=== PATIENT | female | born 1995 | race Caucasian/White ===

== ENCOUNTER 2016-10-29 20:49 | Emergency (ER) | payer SELFPAY ==
[2016-10-29 21:40] LABS: Hematocrit 41 % (35-47); Hemoglobin 13.4 g/dl (12.0-16.0); Mean Corpuscular HGB Conc 33 g/dl (31-36); Mean Corpuscular Hemoglobin 29 pg (27-31); Mean Corpuscular Volume 87 fL (80-97); Mean Platelet Volume 9 um3 (7.4-10.4); Red Blood Count 4.66 10^6/ul (4.0-5.4); Red Cell Distribution Width 15 % (10.5-15); White Blood Count 6.4 10^3/ul (3.5-10.8)
[2016-10-29 21:45] LABS: Urine Bilirubin Negative (Negative); Urine Glucose Negative (Negative); Urine Nitrite Negative (Negative)
[2016-10-29 21:52] LABS: ALT 14 U/L (7-52); AST 19 U/L (13-39); Albumin 4.2 g/dL (3.2-5.2); Alkaline Phosphatase 43 U/L (34-104); Anion Gap 10 mmol/L (2-11); BUN/Creatinine Ratio 25.6 (8-20); Blood Urea Nitrogen 20 mg/dL (6-24); CO2 Carbon Dioxide 24 mmol/L (22-32); Calcium 9.6 mg/dL (8.6-10.3); Chloride 102 mmol/L (101-111); EGFR African American 119.9 (>60); EGFR Non-African American 93.2 (>60); Globulin 2.9 g/dL (2-4); Glucose 83 mg/dL (70-100); Potassium 3.8 mmol/L (3.5-5.0); Sodium 136 mmol/L (133-145); Total Protein 7.1 g/dL (6.4-8.9)
[2016-10-29 21:59] LABS: Benzodiazepine Urine Screen None Detected (None Detect)
[2016-10-29 22:03] LABS: Acetaminophen < 15 mcg/mL; Alcohol < 10 mg/dL (<10); Salicylate < 2.50 mg/dL (<30)
[2016-10-29 22:13] LABS: TSH (Thyroid Stimulating Horm) 5.44 mcIU/mL (0.34-5.60)
--- NOTE | 2016-10-30 07:21 | ED ---
Larry Ferreira Aidan, scribed for Kan Paulson MD on 10/29/16 at 2302 . Psychiatric Complaint - HPI Summary HPI Summary: 21 y/o female presents to the ED with a complaint of an acute, moderate episode of overdose that occurred earlier tonight after taking 20 pills of Aleve at 1999 According to the patient, this was not a suicide attempt. She claims to have taken the Aleve because she thought it would resolve her stress. She denies any abdominal pain, nausea, smoking, drinking, drug use (though her urine was positive for cannabinoids), previous attempts to harm herself, or any previous admissions to psychiatric hospitals. She does not drive and is currently on her period. As a result of her stress, she has not eaten in 2 days. - History Of Current Complaint Chief Complaint: EDOverdose Time Seen by Provider: 10/29/16 21:32 Hx Obtained From: Patient Hx Last Menstrual Period: 1 MONTH AGO, she is currently on her period ?: No Onset/Duration: Sudden Onset, Lasting Hours, Resolved Timing: Intermittent Episode Lasting Severity Initially: Moderate Severity Currently: Mild Aggravating Factor(s): Recent Stress Alleviating Factor(s): Other - unknown Related History: Negative For: Prior Psychiatric Issues - not according to the patient Has Suicidal: Denies: Thoughts - not according to Pt, With A Plan, Has Prior Attempt(s) - not according to Pt Has Homicidal: Denies: Thoughts, With A Plan, Demonstrates Gesture, Has Prior Attempt(s) Recent Stressor(s): recent separation from boyfriend Ingestion History: Type/Name Of Drug - 20 pills of Aleve, Amount Ingested - 20 pills, Approximate Time Of Ingestion - 1999 tonight - Risk Factor(s) Completed Suicide Risk Factors: White [place] - Allergies/Home Medications Allergies/Adverse Reactions: Allergies Allergy/AdvReac Type Severity Reaction Status Date / Time No Known Allergies Allergy Verified 05/05/16 17:59 PMH/Surg Hx/FS Hx/Imm Hx Respiratory History: Denies: Hx Asthma Infectious Disease History: Yes Infectious Disease History: Denies: Traveled Outside the [place] in Last 30 Days - Family History Known Family History: Positive: Unknown - Pt is adopted, no knowledge of blood relatives, Cardiac Disease, Hypertension - Social History Occupation: Student Lives: Alone Alcohol Use: Rare Substance Use Type: Reports: Marijuana Hx Tobacco Use: No Smoking Status (MU): Never Smoked Tobacco Have You Smoked in the Last Year: No Review of Systems Negative: Fever, Chills, Fatigue, Skin Diaphoresis Negative: Photophobia, Blurred Vision, Diplopia, Drainage, Erythema Negative: Epistaxis, Dental Pain, Sore Throat, Ear Ache, Nasal Discharge Negative: Palpitations, Chest Pain Negative: Shortness Of Breath, Cough Negative: Abdominal Pain, Vomiting, Diarrhea, Nausea Negative: burning, dysuria, discharge, frequency, flank pain, hematuria, incontinence, pain, urgency Negative: Arthralgia, Myalgia, Decreased ROM, Edema Negative: Rash, Bruising Negative: Headache, Weakness, Paresthesia, Numbness, Syncope, Slurred Speech Psychological: Other - stressed, overdosed All Other Systems Reviewed And Are Negative: Yes Physical Exam - Summary Physical Exam Summary: Constitutional: Well-developed, Well-nourished, Alert. (-) Distressed Skin: Warm, Dry HENT: Normocephalic; Atraumatic Eyes: Conjunctiva normal Neck: Musculoskeletal ROM normal neck. (-) JVD, (-) Stridor, (-) Tracheal deviation Cardio: Rhythm regular, rate normal, Heart sounds normal; Intact distal pulses; The pedal pulses are 2+ and symmetric. Radial pulses are 2+ and symmetric. (-) Murmur Pulmonary/Chest wall: Effort normal. (-) Respiratory distress, (-) Wheezes, (-) Rales Abd: Soft, (-) Tenderness, (-) Distension, (-) Guarding, (-) Rebound Musculoskeletal: (-) Edema Lymph: (-) Cervical adenopathy Neuro: Alert, Oriented x3 Psych: Mood and affect Normal Triage Information Reviewed: Yes Vital Signs On Initial Exam: Initial Vitals Temp Pulse Resp BP Pulse Ox 98.3 F 69 15 136/71 97 10/29/16 20:54 10/29/16 20:54 10/29/16 20:54 10/29/16 20:54 10/29/16 20:54 Vital Signs Reviewed: Yes - [place] Coma Scale Coma Scale Total: 15 Diagnostics - Vital Signs Vital Signs Temp Pulse Resp BP Pulse Ox 10/29/16 22:00 69 17 123/63 97 10/29/16 21:53 66 16 107/58 97 10/29/16 21:30 62 17 157/128 98 10/29/16 21:00 79 12 136/71 96 10/29/16 20:57 143/100 10/29/16 20:55 72 97 10/29/16 20:54 98.3 F 65 15 136/71 99 - Laboratory Lab Results: Lab Results 10/29/16 10/29/16 10/29/16 Range/Units 21:15 21:15 21:15 WBC 6.4 (3.5-10.8) 10^3/ul RBC 4.66 (4.0-5.4) 10^6/ul Hgb 13.4 (12.0-16.0) g/dl Hct 41 (35-47) % MCV 87 (80-97) fL MCH 29 (27-31) pg MCHC 33 (31-36) g/dl RDW 15 (10.5-15) % Plt Count 223 (150-450) 10^3/ul MPV 9 (7.4-10.4) um3 Neut % (Auto) 65.7 (38-83) % Lymph % (Auto) 25.1 (25-47) % [place] % (Auto) 8.4 (1-9) % Eos % (Auto) 0.4 (0-6) % Baso % (Auto) 0.4 (0-2) % Absolute Neuts (auto) 4.2 (1.5-7.7) 10^3/ul Absolute Lymphs (auto) 1.6 (1.0-4.8) 10^3/ul Absolute Monos (auto) 0.5 (0-0.8) 10^3/ul Absolute Eos (auto) 0 (0-0.6) 10^3/ul Absolute Basos (auto) 0 (0-0.2) 10^3/ul Absolute Nucleated RBC 0 10^3/ul Nucleated RBC % 0 Sodium 136 (133-145) mmol/L Potassium 3.8 (3.5-5.0) mmol/L Chloride 102 (101-111) mmol/L Carbon Dioxide 24 (22-32) mmol/L Anion Gap 10 (2-11) mmol/L BUN 20 (6-24) mg/dL Creatinine 0.78 (0.51-0.95) mg/dL Est GFR ( Amer) 119.9 (>60) Est GFR (Non-Af Amer) 93.2 (>60) BUN/Creatinine Ratio 25.6 H (8-20) Glucose 83 (70-100) mg/dL Calcium 9.6 (8.6-10.3) mg/dL Total Bilirubin 0.50 (0.2-1.0) mg/dL AST 19 (13-39) U/L ALT 14 (7-52) U/L Alkaline Phosphatase 43 (34-104) U/L Total Protein 7.1 (6.4-8.9) g/dL Albumin 4.2 (3.2-5.2) g/dL Globulin 2.9 (2-4) g/dL Albumin/Globulin Ratio 1.4 (1-3) TSH 5.44 (0.34-5.60) mcIU/mL Urine Color Yellow Urine Appearance Clear Urine pH 5.0 (5-9) Ur Specific [place] 1.036 H (1.010-1.030) Urine Protein Negative (Negative) Urine Ketones 2+ H (Negative) Urine Blood Negative (Negative) Urine Nitrate Negative (Negative) Urine Bilirubin Negative (Negative) Urine Urobilinogen Negative (Negative) Ur Leukocyte Esterase Negative (Negative) Urine Glucose Negative (Negative) Salicylates < 2.50 (<30) mg/dL Urine Opiates Screen (None Detect) Acetaminophen < 15 mcg/mL Ur Barbiturates Screen (None Detect) Ur Phencyclidine Scrn (None Detect) Ur Amphetamines Screen (None Detect) U Benzodiazepines Scrn (None Detect) Urine Cocaine Screen (None Detect) U Cannabinoids Screen (None Detect) Serum Alcohol < 10 (<10) mg/dL 10/29/16 Range/Units 21:15 WBC (3.5-10.8) 10^3/ul RBC (4.0-5.4) 10^6/ul Hgb (12.0-16.0) g/dl Hct (35-47) % MCV (80-97) fL MCH (27-31) pg MCHC (31-36) g/dl RDW (10.5-15) % Plt Count (150-450) 10^3/ul MPV (7.4-10.4) um3 Neut % (Auto) (38-83) % Lymph % (Auto) (25-47) % [place] % (Auto) (1-9) % Eos % (Auto) (0-6) % Baso % (Auto) (0-2) % Absolute Neuts (auto) (1.5-7.7) 10^3/ul Absolute Lymphs (auto) (1.0-4.8) 10^3/ul Absolute Monos (auto) (0-0.8) 10^3/ul Absolute Eos (auto) (0-0.6) 10^3/ul Absolute Basos (auto) (0-0.2) 10^3/ul Absolute Nucleated RBC 10^3/ul Nucleated RBC % Sodium (133-145) mmol/L Potassium (3.5-5.0) mmol/L Chloride (101-111) mmol/L Carbon Dioxide (22-32) mmol/L Anion Gap (2-11) mmol/L BUN (6-24) mg/dL Creatinine (0.51-0.95) mg/dL Est GFR ( Amer) (>60) Est GFR (Non-Af Amer) (>60) BUN/Creatinine Ratio (8-20) Glucose (70-100) mg/dL Calcium (8.6-10.3) mg/dL Total Bilirubin (0.2-1.0) mg/dL AST (13-39) U/L ALT (7-52) U/L Alkaline Phosphatase (34-104) U/L Total Protein (6.4-8.9) g/dL Albumin (3.2-5.2) g/dL Globulin (2-4) g/dL Albumin/Globulin Ratio (1-3) TSH (0.34-5.60) mcIU/mL Urine Color Urine Appearance Urine pH (5-9) Ur Specific [place] (1.010-1.030) Urine Protein (Negative) Urine Ketones (Negative) Urine Blood (Negative) Urine Nitrate (Negative) Urine Bilirubin (Negative) Urine Urobilinogen (Negative) Ur Leukocyte Esterase (Negative) Urine Glucose (Negative) Salicylates (<30) mg/dL Urine Opiates Screen None detected (None Detect) Acetaminophen mcg/mL Ur Barbiturates Screen None detected (None Detect) Ur Phencyclidine Scrn None detected (None Detect) Ur Amphetamines Screen None detected (None Detect) U Benzodiazepines Scrn None detected (None Detect) Urine Cocaine Screen None detected (None Detect) U Cannabinoids Screen Presumptive positive H (None Detect) Serum Alcohol (<10) mg/dL Result Diagrams: 10/29/16 21:15 10/29/16 21:15 Lab Statement: Any lab studies that have been ordered have been reviewed, and results considered in the medical decision making process. Course/Dx - Differential Dx/Clinical Impression Provider Diagnosis: Intentional naproxen overdose Discharge - Discharge Plan Condition: Stable Disposition: OTHER Discharge Disposition Comment: TO DR SOLER @ 1976, PENDING MHE The documentation as recorded by the Larry hammer Aidan accurately reflects the service I personally performed and the decisions made by , Kan Paulson MD.
--- NOTE | 2016-10-30 09:49 | CONSULT ---
Consult Consult: Ms. Pearson presented to the Ed after having a problem with her significant other and then taking an OD of naproxen. She says she did it to sleep not to hurt herself. She was medically cleared on the previous shift and underwent MHE. Dr. Evans recommended getting some collateral and her cousin stated that she wood look after the patient so Dr. Evans recommended D/C. She was D/C'd in stable condition with a diagnosis of adjustment disorder.
[2016-10-30 10:34] VITALS: BP 109/71
== END 2016-10-30 10:31 | disposition home or self-care (01) ==
LOC: ED 20:49
DX: T39.312A Poisoning by propionic acid derivatives, intentional self-harm, initial encounter (principal); Y92.9 Unspecified place or not applicable
CPT/HCPCS: 36415; 80053; 80307; 80320; 80329; 81003; 84443; 85025; 93005; 99284; G0480

== ENCOUNTER 2017-05-19 12:45 | Emergency (ER) | payer SELFPAY ==
[2017-05-19 13:19] VITALS: BP 122/59
--- NOTE | 2017-05-19 14:37 | UC ---
Skin Complaint HPI - HPI Summary HPI Summary: 21 YEAR OLD FEMALE PRESENTS WITH COMPLAINS OF RASH ON THE LEFT SIDE OF HER STOMACH. - History of Current Complaint Chief Complaint: UCRash Time Seen by Provider: 05/19/17 14:37 Stated Complaint: RASH Hx Obtained From: Patient Hx Last Menstrual Period: 05/15/17 Onset/Duration: Sudden Onset Skin Exposure Onset/Duration: Days Ago Onset Severity: Moderate Current Severity: Moderate - Allergy/Home Medications Allergies/Adverse Reactions: Allergies Allergy/AdvReac Type Severity Reaction Status Date / Time No Known Allergies Allergy Verified 05/19/17 13:19 Review of Systems Constitutional: Negative Skin: Rash Eyes: Negative ENT: Negative Respiratory: Negative Cardiovascular: Negative Gastrointestinal: Negative Genitourinary: Negative Motor: Negative Neurovascular: Negative Musculoskeletal: Negative Neurological: Negative Psychological: Negative All Other Systems Reviewed And Are Negative: Yes PMH/Surg Hx/FS Hx/Imm Hx Previously Healthy: Yes - Surgical History Surgical History: None - Family History Known Family History: Positive: Unknown - Pt is adopted, no knowledge of blood relatives, Cardiac Disease, Hypertension - Social History Alcohol Use: None Substance Use Type: Marijuana Substance Use Comment - Amount & Last Used: daily usage Smoking Status (MU): Never Smoked Tobacco Have You Smoked in the Last Year: No Physical Exam Triage Information Reviewed: Yes Vital Signs: Initial Vital Signs Temp 36.8 C 05/19/17 13:14 Pulse 64 05/19/17 13:14 Resp 14 05/19/17 13:14 BP 122/59 05/19/17 13:14 Pulse Ox 99 05/19/17 13:14 Vital Signs Reviewed: Yes Eye Exam: Normal ENT Exam: Normal Dental Exam: Normal Neck exam: Normal Neck: Positive: 1 Respiratory Exam: Normal Cardiovascular Exam: Normal Abdominal Exam: Normal Musculoskeletal Exam: Normal Neurological Exam: Normal Psychological Exam: Normal Skin Exam: Normal Skin: Positive: rashes Course/Dx - Diagnoses Provider Diagnoses: CONTACT DERMATITIS Discharge - Discharge Plan Condition: Stable Disposition: HOME Prescriptions: Methylprednisolone [Medrol Dosepak 4 MG*] 4 mg PO .SEE LATISHA INSTRUCTION #21 tab Triamcinolone 0.1% CREAM(NF) [Kenalog Cream 0.1%(NF)] 1 applic TOPICAL TID PRN # 90 gm PRN Reason: Itching Patient Education Materials: Urticaria (ED), Acute Rash (ED) Referrals: Tamara Fink [Medical Doctor] - No Primary Care Phys,NOPCP [Primary Care Provider] -
== END 2017-05-19 14:54 | disposition home or self-care (01) ==
LOC: UCEAST 12:45
DX: L25.9 Unspecified contact dermatitis, unspecified cause (principal); F12.90 Cannabis use, unspecified, uncomplicated
CPT/HCPCS: 99212; G0463

== ENCOUNTER 2017-11-09 09:09 | Emergency (ER) | payer MEDICAID ==
--- NOTE | 2017-11-09 10:16 | UC ---
Abdominal Pain Female HPI - HPI Summary HPI Summary: Patient states she is on day 3 (has taken 2 tabs but not todays tab) of pegestrol...she has not taken control since October 2016. Patient denies fever denies diarrhea denies illness exposures. Patient reports nausea and vomiting that began in the night last night. Voiding usual amount without difficulty - History of Current Complaint Chief Complaint: UCGeneralIllness Stated Complaint: VOMITING Time Seen by Provider: 11/09/17 10:14 Hx Obtained From: Patient Hx Last Menstrual Period: 05/15/17 ?: No Onset/Duration: Sudden Onset, Lasting Hours, Still Present Timing: Constant Severity Initially: Moderate Severity Currently: Moderate Pain Intensity: 7 Pain Scale Used: 0-10 Numeric Location: Diffuse Radiates: No Character: Colicy, Cramping Aggravating Factor(s): Nothing Alleviating Factor(s): Nothing Associated Signs and Symptoms: Positive: Decreased Appetite, Nausea, Vomiting Allergies/Adverse Reactions: Allergies Allergy/AdvReac Type Severity Reaction Status Date / Time No Known Allergies Allergy Verified 11/09/17 09:11 Home Medications: Home Medications medroxyPROGESTERone TAB* [Provera TAB*] 10 mg PO DAILY 11/09/17 [History Confirmed 11/09/17] PMH/Surg Hx/FS Hx/Imm Hx Previously Healthy: Yes - amenorrhea - Surgical History Surgical History: None - Family History Known Family History: Positive: Unknown - Pt is adopted, no knowledge of blood relatives, Cardiac Disease, Hypertension - Social History Occupation: Unemployed Lives: With Family Alcohol Use: None Substance Use Type: Marijuana Substance Use Comment - Amount & Last Used: daily usage Smoking Status (MU): Never Smoked Tobacco Have You Smoked in the Last Year: No Review of Systems Constitutional: Negative Skin: Negative Eyes: Negative ENT: Negative Respiratory: Negative Cardiovascular: Negative Gastrointestinal: Abdominal Pain, Vomiting, Nausea Genitourinary: Negative Motor: Negative Neurovascular: Negative Musculoskeletal: Negative Neurological: Negative Psychological: Negative Is Patient Immunocompromised?: No All Other Systems Reviewed And Are Negative: Yes Physical Exam Triage Information Reviewed: Yes Appearance: Well-Appearing, No Pain Distress, Well-Nourished Vital Signs: Initial Vital Signs Temp 97.7 F 11/09/17 09:14 Pulse 69 11/09/17 09:14 Resp 16 11/09/17 09:14 BP 116/69 11/09/17 09:14 Pulse Ox 100 11/09/17 09:14 Vital Signs Reviewed: Yes Eye Exam: Normal Eyes: Positive: Conjunctiva Clear ENT Exam: Normal ENT: Positive: Normal ENT inspection, Hearing grossly normal, Pharynx normal. Negative: Nasal congestion, TMs normal, Trismus, Muffled voice, Hoarse voice, Dental tenderness Dental Exam: Normal Neck exam: Normal Neck: Positive: Supple, Nontender Respiratory Exam: Normal Respiratory: Positive: Chest non-tender, Lungs clear, Normal breath sounds, No respiratory distress, No accessory muscle use Cardiovascular Exam: Normal Cardiovascular: Positive: RRR, No Murmur, Pulses Normal, Brisk Capillary Refill Abdominal Exam: Normal, Other Abdomen Description: Positive: No Organomegaly, Soft, Other:. Negative: CVA Tenderness (R), CVA Tenderness (L), Distended, Guarding, Hernia @, Hepatomegaly , McBurney's Point Tenderness, Peritoneal Signs, Pulsatile Mass, Splenomegaly Bowel Sounds: Positive: Present Musculoskeletal Exam: Normal Musculoskeletal: Positive: Strength Intact, ROM Intact, No Edema Neurological Exam: Normal Neurological: Positive: Alert, Muscle Tone Normal Psychological Exam: Normal Skin Exam: Normal Diagnostics - Laboratory Diagnostic Studies Completed/Ordered: U is negative UA positive +1 ketones and protein Re-Evaluation - Re-Evaluation First Eval Change: Improved - After Zofran patient was able to tolerate crackers and clear liquids Abd Pain Female Course/Dx - Course Course Of Treatment: Plan will be to discharge patient to home advance clear liquid diet slowly consider changing progesterone to bedtime. To emergency department should symptoms worsen or fail to improve be particularly aware of fevers and right lower quadrant pain - Differential Dx/Diagnosis Provider Diagnoses: Acute nausea and vomiting, amenorrhea by history Discharge - Sign-Out/Discharge Documenting (check all that apply): Discharge - A - Discharge Plan Condition: Stable Disposition: HOME Prescriptions: Ondansetron ODT TAB* [Zofran 4 MG Odt TAB*] 4 mg PO Q6H PRN #12 tab.odt PRN Reason: nausea/vomiting\ Ondansetron ODT TAB* [Zofran 4 MG Odt TAB*] 4 mg PO Q6H PRN #12 tab.odt PRN Reason: nausea Patient Education Materials: Clear Liquid Diet (ED), Acute Nausea and Vomiting (ED) Forms: *Work Release Referrals: Boone Perez MD [Medical Doctor] - 2 Days Additional Instructions: Should you fail to improve or get worse in anyway please report to the emergency department. Please report to the emergency department should you experienced localization of your pain especially to your right lower side. If you have fever should if you are not be able to keep down liquids or if you have a decreasing amount of urine your producing. Some people manage to have less nausea and vomiting with her medications that they take them at bedtime you might want to try this as well - Billing Disposition and Condition Condition: STABLE Disposition: HOME
[2017-11-09] MEDS ORDERED: Ondansetron ODT TAB* 4 MG PO ONE (10:36)
[2017-11-09 11:36] VITALS: BP 120/68
== END 2017-11-09 11:40 | disposition home or self-care (01) ==
LOC: UCEAST 09:09
DX: R11.2 Nausea with vomiting, unspecified (principal); N91.2 Amenorrhea, unspecified; Z32.02 Encounter for pregnancy test, result negative
CPT/HCPCS: 81003; 84702; 99212; A9270-GY; G0463

== ENCOUNTER 2017-12-16 17:04 | Emergency (ER) | payer MEDICAID ==
[2017-12-16 17:13] VITALS: BP 133/85
--- NOTE | 2017-12-16 17:22 | UC ---
Laceration HPI - HPI Summary HPI Summary: 22 y/o female presents to the urgent care c/o Rt forearm injury after cutting herself while she punched out a window at home 5 days ago. Pt reports she didn' t get any medical assistance then. She has developed bruising and redness around the laceration and feels Pain and numbness on her RT forearm has worsen. Pt is not sure when was last Tetanus shot. Pain is 8/10 w/ touch and 0/ 10 at rest. She has not taking anything to alleviate symptoms. Pt denies fever, SOB, chest pain, abdominal pain, N/V/D. - History Of Current Complaint Chief Complaint: UCUpperExtremity Stated Complaint: ARM INJURY Time Seen by Provider: 12/16/17 17:15 Hx Obtained From: Patient Hx Last Menstrual Period: 11/13/17 Laceration Location: Arm - RT forearm Mechanism Of Injury: Sharp Trauma Onset/Duration: Lasting Days - 5 days ago, Still Present, Worse Since - yesterday Severity: Moderate Pain Intensity: 5 Pain Scale Used: 0-10 Numeric Aggravating Factors: Other: - touch Related History: Dominant Hand Right - Allergies/Home Medications Allergies/Adverse Reactions: Allergies Allergy/AdvReac Type Severity Reaction Status Date / Time No Known Allergies Allergy Verified 12/16/17 17:14 PMH/Surg Hx/FS Hx/Imm Hx Previously Healthy: Yes - Pt denies PMHX - Surgical History Surgical History: None - Family History Known Family History: Positive: Unknown - Pt is adopted, no knowledge of blood relatives, Cardiac Disease, Hypertension - Social History Occupation: Employed Full-time Lives: With Family Alcohol Use: None Substance Use Type: Marijuana Substance Use Comment - Amount & Last Used: daily usage Smoking Status (MU): Never Smoked Tobacco Have You Smoked in the Last Year: No Review of Systems Constitutional: Negative Skin: Bruising - RT forearm s/p injury w/ laceration and abrassions Eyes: Negative ENT: Negative Respiratory: Negative Cardiovascular: Negative Gastrointestinal: Negative Genitourinary: Negative Motor: Negative Neurovascular: Decreased Sensation - numbness around the area Musculoskeletal: Negative Neurological: Negative Psychological: Negative Is Patient Immunocompromised?: No All Other Systems Reviewed And Are Negative: Yes Physical Exam - Summary Physical Exam Summary: Vital Signs Reviewed: Yes General: well developed, well nourished female sitting in the examining table w/ o any apparent distress Eye Exam: Normal Eyes: Positive: Conjunctiva Clear - PERRLA, EOMI, fundi grossly normal ENT: Positive: Normal ENT inspection, Hearing grossly normal, Pharynx normal, TMs normal Neck: Positive: Supple, Nontender, No Lymphadenopathy Respiratory: Positive: Chest non-tender, Lungs clear, Normal breath sounds, No respiratory distress Cardiovascular: Positive: RRR, No Murmur, Pulses Normal, Brisk Capillary Refill Abdomen Description: Positive: Nontender, No Organomegaly, Soft. Negative: CVA Tenderness (R), CVA Tenderness (L) Bowel Sounds: Positive: Present Musculoskeletal: Positive: Strength Intact, ROM Intact, No Edema Neurological: Positive: Alert, Muscle Tone Normal Psychological Exam: Normal Skin: Positive:Ventral side of RT forearm w/ 1 superficial linear laceration about 3.0cm in size, w/ surrounding erythema, mild swelling and granulation tissue observed and mild yellowish crusting and tender to palpation, and 2 small abrasions scratches 2.0cm in size tender to palpation surrounding bruising and swelling observed. FROM of RT arm, RT wrist and all fingers, sensation intact, capillary refill brisk, and pulses WNL. Triage Information Reviewed: Yes Vital Signs: Initial Vital Signs Temp 98.4 F 12/16/17 17:10 Pulse 84 12/16/17 17:10 Resp 18 12/16/17 17:10 BP 133/85 12/16/17 17:10 Pulse Ox 97 12/16/17 17:10 Laceration Course/Dx - Course/Dx Course Of Treatment: 22 y/o female presents to the urgent care c/o Rt forearm injury after cutting herself while she punched out a window at home 5 days ago. Pt reports she didn't get any medical assistance then. She has developed bruising and redness around the laceration and feels Pain and numbness on her RT forearm has worsen. Pt is not sure when was last Tetanus shot. Pain is 8/10 w / touch and 0/10 at rest. She has not taking anything to alleviate symptoms. Pt denies fever, SOB, chest pain, abdominal pain, N/V/D. Hx obtained. Pt w/ 1 superficial linear laceration about 3.0cm in size, w/ sorrounding erythema, mild swelling and granulation tissue observed, and 2 small abrasions scratches 2.0cm in size tender to palpation on examination. RT forearm X-ray oredered to r /o FB and fracture, Impression: No fracture or FB observed as per radiologist. wound cleaned w/ iodine swabs and bacitracin topical oint applied over, cover w / sterile dressing. Pt Rx Keflex PO, Ibuprofen PO and Bacitracin oint. Pt advised If redness and swelling doubles in size after 48 hrs of taking antibiotic and fever develops to return to the urgent or the ER for further management. Pt strongly advised to f/u with Orthopedic Dr Dawn if not improvement of symptoms in 1 week. Pt understood and agreed w/ plan of care. - Differential Dx - Laceration/Wound Differental Diagnoses: Abrasion, Foreign Body, Fracture, Laceration, Puncture Wound, Tendon Laceration Provider Diagnoses: 1- Rt forearm superficial laceration infected. 2-RT forearm contusion s/p injury Discharge - Sign-Out/Discharge Documenting (check all that apply): Discharge/Admit/Transfer - D/C home - Discharge Plan Condition: Stable Disposition: HOME Prescriptions: Bacitracin OINTMENT* 1 applic TOPICAL BID #1 tube Cephalexin CAP* [Keflex CAP*] 500 mg PO QID #28 cap Ibuprofen TAB* [Motrin TAB* 600 MG] 600 mg PO Q6H PRN #20 tab PRN Reason: Pain Patient Education Materials: Wound Infection (ED), Contusion in Adults (ED) Referrals: [facility] [[facility]] - 3 Days Joaquina Dawn MD [Medical Doctor] - 1 Week Additional Instructions: 1-Please take full course of Antibiotic. 2- If redness and swelling doubles in size after 48 hrs of taking antibiotic and fever develops please go to the ER immediately. 3-Avoid heavy lifting or felxion of your Rt hand 4-Please F/u with your PCP in 2-3 days for further evaluation and treatment. 5- If arm pain persists or worsens please f/u w/ orthopedic Dr Dawn fo return to the urgent care for further management - Billing Disposition and Condition Condition: STABLE Disposition: HOME
[2017-12-16] MEDS ORDERED: Tetan/Diph/Pertus SYR(Tdap)* 0.5 ML SYR(BOOSTRIX) use SYR IM ONE (17:33)
--- NOTE | 2017-12-16 18:19 | RAD ---
HISTORY: Right forearm laceration, evaluate for foreign body COMPARISONS: None VIEWS: 2, Frontal and lateral views of the right forearm FINDINGS: BONE DENSITY: Normal. BONES: There is no displaced fracture. JOINTS: There is no arthropathy. ALIGNMENT: There is no dislocation. SOFT TISSUES: Unremarkable. OTHER FINDINGS: There is no radiopaque foreign body. IMPRESSION: NO ACUTE OSSEOUS INJURY. IF SYMPTOMS PERSIST, RECOMMEND REPEAT IMAGING.
== END 2017-12-16 18:45 | disposition home or self-care (01) ==
LOC: UCEAST 17:04
DX: S51.811A Laceration without foreign body of right forearm, initial encounter (principal); S50.11XA Contusion of right forearm, initial encounter; W25.XXXA Contact with sharp glass, initial encounter; Y93.89 Activity, other specified; Y92.009 Unspecified place in unspecified non-institutional (private) residence as the place of occurrence of the external cause; Z23 Encounter for immunization; Z32.02 Encounter for pregnancy test, result negative
CPT/HCPCS: 84702; 90471; 90715; 99212; G0463

== ENCOUNTER 2018-01-03 09:19 | Day surgery (SDC) | payer OTHER ==
--- NOTE | 2018-01-02 10:26 | HP ---
PREOPERATIVE HISTORY AND PHYSICAL: DATE OF SURGERY/ADMISSION: 01/03/[address] [facility] DATE OF OFFICE VISIT/ENCOUNTER: 12/26/17 ATTENDING SURGEON: Laury Chinchilla MD * (DICTATED BY RAMIRO GARCIA) PROCEDURE: Right forearm removal of foreign body. CHIEF COMPLAINT: Suspected foreign body, right forearm. HISTORY OF PRESENT ILLNESS: This is a 22-year-old female who sustained an injury to her right forearm on 12/16/17. She was trying to get inside her house and she had to smash her window and suffered several cuts on her right forearm. She was seen at Urgent Care on the day of injury and had an x-ray, which was negative for a fracture and foreign body. She has intermittent numbness and tingling in the arm along with pain. The patient is employed as a deputy administrator at [employer] and she has been able to continue to work this injury. She is on Keflex and also using bacitracin ointment on the lacerations. Otherwise, she has been feeling well. No fevers, chills, or night sweats. PAST MEDICAL HISTORY: Unremarkable. PAST SURGICAL HISTORY: None. CURRENT REGULAR MEDICATIONS: None. The patient is currently on: 1. Keflex p.o. 2. Topical bacitracin for current injury. ALLERGIES: No known drug allergies. FAMILY MEDICAL HISTORY: Noncontributory. SOCIAL HISTORY: The patient is a deputy administrator at [employer]. She denies tobacco use, recreational drug use and does not drink alcohol. REVIEW OF SYSTEMS: General: Negative for fevers, chills, or night sweats, unexplained weight loss/gain. No anesthesia problems in the past. HEENT: Negative for headache, lightheadedness, or syncopal episodes. Integumentary: Positive for current complaint. Cardiothoracic: Negative for hypertension, chest pain, palpitations, or edema. Respiratory: Negative for shortness of breath with exertion, chronic cough, or wheezing. GI: Negative for nausea, vomiting, diarrhea, constipation, or GERD. : Negative for nocturia, urinary frequency, urgency, history of UTIs, or kidney problems. Musculoskeletal: Positive for current complaint. Negative for chronic or intermittent back pain or history of fractures. Neurological: Negative for paresthesias, numbness, history of seizure, stroke, or poor balance. Endocrine: Negative for diabetes and thyroid issues. Hematologic: Negative for easy bruising, anemia, bleeding disorders, or history of DVT. Infectious Disease: Negative for history of MRSA , hepatitis C, or HIV. PHYSICAL EXAMINATION GENERAL: Well-developed, well-nourished 22-year-old female, in no acute distress. VITAL SIGNS: Height 5 feet 8 inches, weight 146 pounds. Pulse rate 70, blood pressure 101/66. HEENT: Normocephalic, atraumatic. Pupils are equal, round, and reactive to light and accommodation. Extraocular movements are intact. NECK: Supple. No palpable lymph nodes. Throat is clear. PULMONARY: Lungs are clear to auscultation bilaterally. No wheezes, rales, or rhonchi. CARDIOVASCULAR: Regular rate and rhythm. S1, S2. No murmurs, rubs, or gallops. No edema. ABDOMEN: Positive bowel sounds. Soft, nontender. MUSCULOSKELETAL: On exam of her right forearm, she has several healed lacerations and one healing laceration which is about 2 cm in length. Adjacent to that laceration, there is a palpable very tender mass quite possibly a foreign body, but possibly also some scar tissue or hematoma. She has intact neurovascular function of the right upper extremity and normal motion in her elbow. She can make a fist and has good motion in her wrist; however, there is associated pain with wrist motion. There is no erythema or sign of infection. NEUROLOGICAL: Alert and oriented x3. Cranial nerves II through XII are intact. Sensation is intact to light touch. IMAGING STUDIES: X-rays: PA, lateral of the right forearm appear normal. ASSESSMENT: Foreign body in right forearm after an injury with a broken glass window. PLAN: The patient is scheduled to undergo a right forearm removal of foreign body with Dr. Chinchilla on 01/03/18. An ultrasound has been ordered to confirm the presence of the foreign body. We will plan on having the patient follow up postoperatively in 10 days for suture removal and postoperative pain management medicines will be prescribed on the day of surgery. RAMIRO GARCIA [id number]/[facility] #: [id number] [place]
[~2018-01-03 09:19] MED LIST: Buffered Lidocaine 0.9% SYRIN* 5 ML/SYR SYRINGE INTRADERM ONE; Dexamethasone IV* 4 MG/ML 1 ML (4 MG) IV SLOW PU ONE; Famotidine IV* 10 MG/ML 2 ML (20 mg) IV ONE
[2018-01-03] MEDS ORDERED: Dexamethasone IV* 4 MG/ML 1 ML (4 MG) ONE (10:25)
[2018-01-03] MEDS ORDERED: Famotidine IV* 10 MG/ML 2 ML (20 mg) ONE (10:25)
[2018-01-03] MEDS ORDERED: Midazolam* 1 MG/ML 5 ML VIAL (5 MG) ONE (11:46)
[2018-01-03] MEDS ORDERED: fentaNYL* 50 MCG/ML 2 ML VIAL (100 MCG VIAL) ONE (11:46)
[2018-01-03] MEDS ORDERED: Naloxone* 0.4 MG/ML 1 ML VIAL IV PRN (11:56)
[2018-01-03] MEDS ORDERED: Ketorolac INJ* 30 MG/ML 1 ML VIAL IV PRN (11:56)
[2018-01-03] MEDS ORDERED: oxyCODONE/Acetamin 5/325 MG* TAB PO PRN (11:56)
[2018-01-03] MEDS ORDERED: DiMENhydriNATE IV* 50 MG/ML VIAL IV PUSH PRN (11:56)
[2018-01-03] MEDS ORDERED: HYDROcodone/ACETAMIN 5-325 MG* 1 TAB PO PRN (11:56)
[2018-01-03] MEDS ORDERED: fentaNYL* 50 MCG/ML 2 ML VIAL (100 MCG VIAL) IV PRN (11:56)
[2018-01-03] MEDS ORDERED: Ondansetron INJ* 2 MG/ML VIAL IV PRN (11:56)
[2018-01-03] MEDS ORDERED: Lidocaine 2% PF * 5 ML VIAL ONE (11:59)
[2018-01-03] MEDS ORDERED: Propofol* 10 MG/ML 20 ML BTL IV PUSH ONE (11:59)
[2018-01-03] MEDS ORDERED: Lidocaine 1% INJ* 10 MG/ML 30 ML SDV ONE (12:01)
[2018-01-03 12:47] VITALS: BP 101/49
--- NOTE | 2018-01-04 05:32 | OP ---
DATE OF OPERATION: 01/03/18 [facility] DATE OF : 89 SURGEON: Laury Chinchilla MD HOUSEKEEPING ROOM ATTENDANT: RAMIRO Guillen ANESTHESIA: Local MAC. PRE-OP DIAGNOSIS: Foreign body in the right forearm POST-OP DIAGNOSIS: Foreign body in the right forearm. OPERATIVE PROCEDURE: Removal of foreign body in the right forearm. ESTIMATED BLOOD LOSS: Zero. TOURNIQUET TIME: About 15 minutes. INDICATIONS: Estefani is a 22-year-old female who had to break a window in her house to get into the house. She suffered several lacerations. She has a palpable foreign body remaining in her forearm. She presents for removal. DESCRIPTION OF PROCEDURE: The patient was brought to the operating room, was given a sedation anesthetic and local infiltration at 10 cc with 1% plain lidocaine over the palpable foreign body. The skin of her right hand and forearm was prepped and draped in the usual sterile fashion. The hand and forearm were exsanguinated and the tourniquet elevated to 250 mmHg. A longitudinal incision was made extending from one of the lacerations and over the palpable foreign body. We dissected bluntly through the subcutaneous tissue. There was what appeared to be some gravel in her forearm. This was removed and sent for pathology. The wound was copiously irrigated with saline. No other foreign body was found. The skin edges were reapproximated with 4-0 nylon suture. The wound was dressed with Xeroform, 4x4 Webril, and an [place] wrap. The patient tolerated the procedure well, was brought to the recovery room in good condition. [id number]/[facility] #: [id number] [facility]
== END 2018-01-03 13:13 | disposition home or self-care (01) ==
LOC: OREAST 09:19
PROVIDERS: ATTEND Orthopaedic Surgery
DX: M79.5 Residual foreign body in soft tissue (principal); Z72.0 Tobacco use
CPT/HCPCS: 81025; 88304; J1100; J2250; J2704; J3010

== ENCOUNTER 2018-03-27 23:26 | Emergency (ER) | payer OTHER ==
[2018-03-28 00:49] LABS: ABS Basophils 0 10^3/ul (0-0.2); ABS Eosinophils 0.3 10^3/ul (0-0.6); ABS Monocytes 0.6 10^3/ul (0-0.8); ABS Neutrophils 5.2 10^3/ul (1.5-7.7); ABS Nucleated RBC 0 10^3/ul; Eosinophil % 3.5 % (0-6); Hematocrit 38 % (35-47); Hemoglobin 12.8 g/dl (12.0-16.0); Lymphocyte % 24.6 % (25-47); Mean Corpuscular HGB Conc 34 g/dl (31-36); Mean Corpuscular Hemoglobin 31 pg (27-31); Mean Corpuscular Volume 91 fL (80-97); Mean Platelet Volume 9.3 um3 (7.4-10.4); Nucleated Red Blood Cells % 0.1; Platelet Count 211 10^3/ul (150-450); Red Blood Count 4.15 10^6/ul (4.00-5.40); Red Cell Distribution Width 14 % (10.5-15); White Blood Count 8.2 10^3/ul (3.5-10.8)
--- NOTE | 2018-03-28 00:53 | ED ---
GI/ HPI - HPI Summary HPI Summary: 22-year-old female presents with lower abdominal pain for the past hour. She states that is started after she had sex. States it lasted for an hour or so and has since resolved. She denies any pain currently. She admits to nausea that has resolved. No vomiting. no pain with urination. No vaginal discharge. She denies any chance she has a pelvic infection. Last menstrual period was in january. no urgency or frequency. No flank pain. No fevers. No diarrhea constipation. She has no medical conditions. No previous belly surgeries. - History of Current Complaint Chief Complaint: EDAbdPain Time Seen by Provider: 03/28/18 00:07 Stated Complaint: ABD PAIN Hx Last Menstrual Period: 11/13/17 Pain Intensity: 2 - Allergy/Home Medications Allergies/Adverse Reactions: Allergies Allergy/AdvReac Type Severity Reaction Status Date / Time No Known Allergies Allergy Verified 03/28/18 00:28 PMH/Surg Hx/FS Hx/Imm Hx Endocrine/Hematology History: Denies: Hx Anticoagulant Therapy Cardiovascular History: Denies: Hx Hypertension Respiratory History: Denies: Hx Asthma Sensory History: Denies: Hx Contacts or Glasses, Hx Hearing Aid Opthamlomology History: Denies: Hx Contacts or Glasses Psychiatric History: Reports: Hx of Violent Episodes Against Others Denies: Hx Eating Disorder - Cancer History Hx Chemotherapy: No - Immunization History Immunizations Up to Date: Yes Infectious Disease History: No Infectious Disease History: Denies: Traveled Outside the [place] in Last 30 Days - Family History Known Family History: Positive: Unknown - Pt is adopted, no knowledge of blood relatives, Cardiac Disease, Hypertension - Social History Alcohol Use: None Substance Use Type: Reports: Marijuana Substance Use Comment - Amount & Last Used: daily usage Hx Tobacco Use: No Smoking Status (MU): Never Smoked Tobacco Have You Smoked in the Last Year: No Review of Systems Negative: Fever Negative: Chest Pain Negative: Shortness Of Breath Positive: Abdominal Pain, Nausea. Negative: Vomiting, Diarrhea All Other Systems Reviewed And Are Negative: Yes Physical Exam Triage Information Reviewed: Yes Vital Signs On Initial Exam: Initial Vitals Temp Pulse Resp BP Pulse Ox 97.7 F 61 18 134/79 99 03/27/18 23:28 03/27/18 23:28 03/27/18 23:28 03/27/18 23:28 03/27/18 23:28 Vital Signs Reviewed: Yes Appearance: Positive: Well-Appearing Skin: Positive: Warm, Dry Head/Face: Positive: Normal Head/Face Inspection Eyes: Positive: Normal, Conjunctiva Clear ENT: Positive: Pharynx normal Respiratory/Lung Sounds: Positive: Clear to Auscultation, Breath Sounds Present Cardiovascular: Positive: Normal, RRR Abdomen Description: Positive: Nontender, Soft Bowel Sounds: Positive: Present Musculoskeletal: Positive: Normal Neurological: Positive: Normal Psychiatric: Positive: Normal Diagnostics - Vital Signs Vital Signs Temp Pulse Resp BP Pulse Ox 03/27/18 23:28 97.7 F 61 18 134/79 99 - Laboratory Lab Results: Lab Results 03/28/18 Range/Units 00:41 WBC 8.2 (3.5-10.8) 10^3/ul RBC 4.15 (4.00-5.40) 10^6/ul Hgb 12.8 (12.0-16.0) g/dl Hct 38 (35-47) % MCV 91 (80-97) fL MCH 31 (27-31) pg MCHC 34 (31-36) g/dl RDW 14 (10.5-15) % Plt Count 211 (150-450) 10^3/ul MPV 9.3 (7.4-10.4) um3 Neut % (Auto) 63.6 (38-83) % Lymph % (Auto) 24.6 L (25-47) % [place] % (Auto) 7.9 H (0-7) % Eos % (Auto) 3.5 (0-6) % Baso % (Auto) 0.4 (0-2) % Absolute Neuts (auto) 5.2 (1.5-7.7) 10^3/ul Absolute Lymphs (auto) 2.0 (1.0-4.8) 10^3/ul Absolute Monos (auto) 0.6 (0-0.8) 10^3/ul Absolute Eos (auto) 0.3 (0-0.6) 10^3/ul Absolute Basos (auto) 0 (0-0.2) 10^3/ul Absolute Nucleated RBC 0 10^3/ul Nucleated RBC % 0.1 Result Diagrams: 03/28/18 00:41 03/28/18 00:41 Lab Statement: Any lab studies that have been ordered have been reviewed, and results considered in the medical decision making process. - Ultrasound No standard instances Ultrasound Interpretation: Positive (See Comments) - Complex right ovarian cyst measuring 3.1 x 2.1 x 2.4 cm Ultrasound Interpretation Completed By: Ariel CRUZ Course/Dx - Course Course Of Treatment: 22-year-old female presents with lower abdominal pain for the past hour. She states that is started after she had sex. States it lasted for an hour or so and has since resolved. She denies any pain currently. She admits to nausea that has resolved. No vomiting. no pain with urination. No vaginal discharge. She denies any chance she has a pelvic infection. Last menstrual period was in january. no urgency or frequency. No flank pain. No fevers. No diarrhea constipation. She has no medical conditions. No previous belly surgeries. On exam abdomen soft nontender. Labs wbc normal. urine contaminate vs uti but will treat as uti with bactrim for 3 days. u/s shows complex ovarian cyst. will have follow up with ordnance keeper about to make sure resolves. patient understand and agrees with plan. - Diagnoses Differential Diagnoses - Female: Ovarian Cyst, Ovarian Torsion, Pelvic Inflammatory Disease, Urinary Tract Infection Provider Diagnoses: Ovarian cyst, UTI (urinary tract infection) Discharge - Sign-Out/Discharge Documenting (check all that apply): Patient Departure - Discharge Plan Condition: Good Disposition: HOME Prescriptions: Sulfamethox/Trimethoprim DS* [Bactrim DS 800/160 TAB*] 1 tab PO BID #5 tab Patient Education Materials: Ovarian Cyst (ED), Urinary Tract Infection in Women (ED) Referrals: [facility] [place] [facility]ERR[facility] [Outside] Additional Instructions: take antibiotic twice a day for 3 days Take ibuprofen or Tylenol for pain as needed every 6 hours Establish care with primary follow up with ordnance keeper in a month to make sure cyst resolves Return to ED if develop any new or worsening symptoms - Billing Disposition and Condition Condition: GOOD Disposition: Home
[2018-03-28 01:06] LABS: Urine Appearance Clear; Urine Blood 3+ (Negative); Urine Color Yellow; Urine Ketones Negative (Negative); Urine Protein Negative (Negative); Urine Red Blood Cell 2+(6-10/hpf) (Absent); Urine Specific Gravity 1.021 (1.010-1.030); Urine Urobilinogen Negative (Negative); Urine White Blood Cell 3+(>20/hpf) (Absent)
[2018-03-28 01:06] LABS: EGFR Non-African American 106.4 (>60)
--- NOTE | 2018-03-28 01:08 | RAD ---
EXAM: US Pelvis, Transvaginal CLINICAL HISTORY: 22 years old, female; Pain; Pelvic pain; Additional info: Rlq pain TECHNIQUE: Real-time transvaginal pelvic ultrasound (complete) with image documentation. Transvaginal imaging was used for better evaluation of the endometrium and adnexa. COMPARISON: No relevant prior studies available. FINDINGS: Uterus/cervix: 7.8 x 5.0 x 6.1 cm. Endometrium measures 11 mm in thickness and is normal. No myometrial mass. There are linear anechoic parauterine structures most likely representing prominent vessels. They can represent pelvic congestion syndrome in the appropriate clinical setting. Right ovary: The right ovary measures 5.6 x 2.8 x 3.4 cm. septated cyst measuring 3.1 x 2.1 x 2.4 cm. Normal blood flow. Left ovary: Left ovary measures 3.1 x 2.6 x 2.3 cm. No mass. Normal blood flow. Free fluid: Small amount of free pelvic fluid. Small nabothian cysts in the cervix. IMPRESSION: Complex right ovarian cyst measuring 3.1 x 2.1 x 2.4 cm. ACR White Paper guidelines (Sheron, et. al. Radiology 2010; 256(3):943-954) suggest surgical evaluation or pelvic MRI. Final read addendum: The right ovarian cyst demonstrates minimal internal echogenicity with a thin internal septation without vascularity. This is felt to be a minimally complicated rather than complex ovarian cyst. Given the imaging appearance and patient age, recommend follow-up imaging evaluation and 6 weeks-12 weeks to document resolution. R2
[2018-03-28] MEDS ORDERED: Sulfamethox/Trimethoprim DS 800/160* TAB PO ONE (01:14)
[2018-03-28 01:23] VITALS: BP 127/72
== END 2018-03-28 01:22 | disposition home or self-care (01) ==
LOC: ED 23:26
DX: N83.209 Unspecified ovarian cyst, unspecified side (principal); N39.0 Urinary tract infection, site not specified; R11.0 Nausea; R10.30 Lower abdominal pain, unspecified
CPT/HCPCS: 36415; 76830; 80053; 81003; 81015; 84702; 85025; 86140; 87086; 99282; A9270-GY

== ENCOUNTER 2018-10-27 11:09 | Emergency (ER) | payer OTHER ==
[2018-10-27 11:25] VITALS: BP 111/52
--- NOTE | 2018-10-27 11:37 | UC ---
UC General HPI - HPI Summary HPI Summary: TOOK 2 HOME TESTS 2 DAYS AGO, BOTH POSITIVE. WANTS ONE DONE HERE. LMP 06/28/18. NO ASSOCIATED PAIN OR BLEEDING. HAS NOT TRIED TO F/U PCP AT [facility] [place]. - History of Current Complaint Chief Complaint: UCGeneralIllness Stated Complaint: PERSONAL Time Seen by Provider: 10/27/18 11:20 Hx Obtained From: Patient Hx Last Menstrual Period: LMP 06/28/18 Pain Intensity: 0 Associated Signs & Symptoms: Negative: Abdominal Pain, Dysuria - Allergy/Home Medications Allergies/Adverse Reactions: Allergies Allergy/AdvReac Type Severity Reaction Status Date / Time No Known Allergies Allergy Verified 10/27/18 11:20 Home Medications: Home Medications NK [No Home Medications Reported] 10/27/18 [History Confirmed 10/27/18] PMH/Surg Hx/FS Hx/Imm Hx Previously Healthy: Yes Other History Of: Negative For: Anticoagulant Therapy - Surgical History Surgical History: None - Family History Known Family History: Positive: Unknown - Pt is adopted, no knowledge of blood relatives, Cardiac Disease, Hypertension - Social History Alcohol Use: None Substance Use Type: None Substance Use Comment - Amount & Last Used: daily usage Smoking Status (MU): Never Smoked Tobacco Have You Smoked in the Last Year: No Review of Systems All Other Systems Reviewed And Are Negative: Yes Physical Exam Triage Information Reviewed: Yes Appearance: Well-Appearing Vital Signs: Initial Vital Signs Temp 97.9 F 10/27/18 11:20 Pulse 87 10/27/18 11:20 Resp 16 10/27/18 11:20 BP 111/52 10/27/18 11:20 Pulse Ox 99 10/27/18 11:20 Vital Signs Reviewed: Yes Eyes: Positive: Conjunctiva Clear ENT: Positive: Normal ENT inspection Neck: Positive: Supple, Nontender, No Lymphadenopathy Respiratory: Positive: Lungs clear, Normal breath sounds, No respiratory distress Cardiovascular: Positive: RRR, No Murmur Abdomen Description: Positive: Nontender, Soft, Other: - Gravid uterus(mildly enlarged).. Negative: Distended, Guarding Bowel Sounds: Positive: Present Musculoskeletal: Positive: ROM Intact Neurological: Positive: Alert Psychological: Positive: Age Appropriate Behavior Course/Dx - Course Course Of Treatment: urine hcg=positive. pt advised of need for close f/u pcp as soon as possible to establish prenantal care. pt also advised to avoid alcohol, tobacco and medications except for Tylenol. - Diagnoses Provider Diagnosis: Discharge - Sign-Out/Discharge Documenting (check all that apply): Patient Departure All imaging exams completed and their final reports reviewed: No Studies - Discharge Plan Condition: Stable Disposition: HOME Patient Education Materials: (ED) Referrals: [facility] [Provider Group] Additional Instructions: FOLLOW UP WITH YOUR PRIMARY CARE AT [facility] ON [address] SOON POSSIBLE , CALL TODAY. - Billing Disposition and Condition Condition: STABLE Disposition: Home
== END 2018-10-27 11:51 | disposition home or self-care (01) ==
LOC: UCCORT 11:09
DX: Z32.01 Encounter for pregnancy test, result positive (principal)
CPT/HCPCS: 84702; 99211; G0463

== ENCOUNTER 2018-12-08 14:20 | Emergency (ER) | payer OTHER ==
--- NOTE | 2018-12-08 14:49 | ED ---
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 She then sat down for a few minutes, but when she stood back up, she felt dizzy and diaphoretic. She tried to relieve her symptoms by lying down, but her symptoms seemed to worsen. She reports that she only had a small breakfast, but she ate normally last night. She additionally c/o SOB and pale pallor. She denies vaginal discharge or bleeding, and CP. She has some epigastric pain consistent with current timing of at 5 months. A0. - History Of Current Complaint Chief Complaint: EDDizziness Stated Complaint: DIZZY PER EMS Time Seen by Provider: 12/08/18 14:26 Hx Obtained From: Patient Onset/Duration: Suddenly Timing: Minutes Severity Initially: Moderate Severity Currently: Mild Character: Dizzy Aggravating Factor(s): Other - sitting to standing Alleviating Factor(s): Lying Down Associated Signs And Symptoms: Positive: Diaphoresis, SOB, Other: - POSITIVE: pale pallor; NEGATIVE: vaginal discharge or bleeding, CP. Negative: Chest Pain - Allergies/Home Medications Allergies/Adverse Reactions: Allergies Allergy/AdvReac Type Severity Reaction Status Date / Time No Known Allergies Allergy Verified 10/27/18 11:20 PMH/Surg Hx/FS Hx/Imm Hx Endocrine/Hematology History: Denies: Hx Anticoagulant Therapy Cardiovascular History: Denies: Hx Hypertension Respiratory History: Denies: Hx Asthma Sensory History: Denies: Hx Contacts or Glasses, Hx Hearing Aid Opthamlomology History: Denies: Hx Contacts or Glasses Psychiatric History: Reports: Hx of Violent Episodes Against Others Denies: Hx Eating Disorder - Cancer History Hx Chemotherapy: No - Surgical History Surgery Procedure, Year, and Place: none Infectious Disease History: No Infectious Disease History: Denies: Traveled Outside the [place] in Last 30 Days - Family History Known Family History: Positive: Unknown - Pt is adopted, no knowledge of blood relatives, Cardiac Disease, Hypertension - Social History Alcohol Use: None Hx Substance Use: No Substance Use Type: Reports: None Substance Use Comment - Amount & Last Used: daily usage Hx Tobacco Use: No Smoking Status (MU): Never Smoked Tobacco Do You Chew or Dip Tobacco: No Have You Chewed or Dipped Tobacco in the LAST YEAR: No Have You Smoked in the Last Year: No Review of Systems Constitutional: Other - pale pallor Positive: Skin Diaphoresis, Other - hot flash Negative: Chest Pain Positive: Shortness Of Breath Positive: Abdominal Pain - epigastric pain secondary Positive: other - NEGATIVE: vaginal bleeding. Negative: discharge Neurological: Other - dizziness All Other Systems Reviewed And Are Negative: Yes Physical Exam - Summary Physical Exam Summary: VITAL SIGNS: Reviewed. GENERAL: Patient is a well-developed and nourished female who is lying comfortable in the stretcher. Patient is not in any acute respiratory distress. HEAD AND FACE: No signs of trauma. No ecchymosis, hematomas or skull depressions. No sinus tenderness. EYES: PERRLA, EOMI x 2, No injected conjunctiva, no nystagmus. EARS: Hearing grossly intact. Ear canals and tympanic membranes are within normal limits. MOUTH: Oropharynx within normal limits. NECK: Supple, trachea is midline, no adenopathy, no JVD, no carotid bruit, no c- spine tenderness, neck with full ROM. CHEST: Symmetric, no tenderness at palpation LUNGS: Clear to auscultation bilaterally. No wheezing or crackles. CVS: Regular rate and rhythm, S1 and S2 present, no murmurs or gallops appreciated. ABDOMEN: Soft, non-tender. Abdominal distention above the umbilical secondary to . No rebound no guarding, and no masses palpated. Bowel sounds are normal. EXTREMITIES: FROM in all major joints, no edema, no cyanosis or clubbing. NEURO: Alert and oriented x 3. No acute neurological deficits. Speech is normal and follows commands. SKIN: Dry and warm Triage Information Reviewed: Yes Vital Signs On Initial Exam: Initial Vitals Temp Pulse Resp BP Pulse Ox 100.0 F 78 17 125/74 98 12/08/18 14:27 12/08/18 14:27 12/08/18 14:27 12/08/18 14:27 12/08/18 14:27 Vital Signs Reviewed: Yes Diagnostics - Vital Signs Vital Signs Temp Pulse Resp BP Pulse Ox 12/08/18 14:27 100.0 F 78 17 125/74 98 - Laboratory Result Diagrams: 12/08/18 14:57 12/08/18 14:57 Lab Statement: Any lab studies that have been ordered have been reviewed, and results considered in the medical decision making process. - EKG 14:53 Cardiac Rate: NL - 76 BPM EKG Rhythm: Sinus Rhythm EKG Comparison: No Significant Change - Similar to EKG on 10/29/16. Summary of EKG Findings: No ST elevations. Re-Evaluation - Re-Evaluation First Eval Re-Evaluation Time: 17:00 Change: Improved Comment: The patient is feeling better. She will be discharged home. Dizzy Course/Dx - Course Assessment/Plan: This patient is a 23-year-old female who is 5 months presenting to the emergency department with chief complaint of having a fainting episode. The patient reports that she did not have any breakfast this morning and had no water intake. She was working and standing up she developed dizziness and she agrees that she was going to pass out. Patient is feeling better and at the baseline. Test results without any significant abnormality except for hemoglobin of 10.6, hematocrit 30,calcium was 8.4, and UA is negative for UTI. The patient was given a liter of fluids. The patient is eating and drinking well and symptoms have resolved. The heart rate is between 140 and 150. She doesnt have any vaginal bleeding or abdominal cramping. Therefore, the patient will be discharged home with follow-up with the primary care physician. Patient is hemodynamically stable alert and oriented 3. - Diagnoses Provider Diagnoses: Near syncope Discharge - Sign-Out/Discharge Documenting (check all that apply): Patient Departure - Patient will be discharged home. Patient Received Moderate/Deep Sedation with Procedure: No - Discharge Plan Condition: Stable Disposition: HOME Patient Education Materials: Near Syncope (ED) Referrals: [facility] [place] [facility] [Outside] - 7 Days Additional Instructions: FOLLOW UP WITH YOUR PRIMARY CARE PROVIDER WITHIN ONE WEEK. RETURN TO THE ED FOR ANY WORSENING OR NEW SYMPTOMS. - Billing Disposition and Condition Condition: STABLE Disposition: Home - Attestation Statements Document Initiated by Scribe: Yes Documenting Scribe: Rita Mosley Provider For Whom Thee is Documenting (Include Credential): Dr. Lemuel Delgadillo MD Scribe Attestation: Rita Ferreira scribed for Dr. Lemuel Delgadillo MD on 12/08/18 at 2048. Scribe Documentation Reviewed: Yes Provider Attestation: The documentation as recorded by the scribe, Rita Mosley accurately reflects the service I personally performed and the decisions made by me, Dr. Lemuel Delgadillo MD Status of Scribe Document: Ready
[2018-12-08 15:12] LABS: ABS Basophils 0 10^3/ul (0-0.2); ABS Eosinophils 0.1 10^3/ul (0-0.6); ABS Lymphocytes 1.5 10^3/ul (1.0-4.8); ABS Monocytes 0.5 10^3/ul (0-0.8); ABS Neutrophils 4.5 10^3/ul (1.5-7.7); ABS Nucleated RBC 0 10^3/ul; Eosinophil % 1.3 %; Hematocrit 30 % (33-41); Hemoglobin 10.6 g/dL (12.0-16.0); Lymphocyte % 22.6 %; Mean Corpuscular HGB Conc 35 g/dL (31-36); Mean Corpuscular Hemoglobin 31 pg (27-31); Mean Corpuscular Volume 88 fL (80-97); Mean Platelet Volume 8.5 fL (7.4-10.4); Nucleated Red Blood Cells % 0.1; Platelet Count 220 10^3/uL (150-450); Red Blood Count 3.43 10^6 /uL (3.70-4.87); Red Cell Distribution Width 13 % (10.5-15); White Blood Count 6.6 10^3/uL (3.5-10.8)
[2018-12-08 15:28] LABS: Albumin 3.6 g/dL (3.2-5.2); Albumin/Globulin Ratio 1.2 (1-3); BUN/Creatinine Ratio 16.7 (8-20); C Reactive Protein 1.43 mg/L (<8.01); Calcium 8.4 mg/dL (8.6-10.3); EGFR African American 169.3 (>60); EGFR Non-African American 139.9 (>60); Globulin 2.9 g/dL (2-4); Potassium 3.7 mmol/L (3.5-5.0); Total Bilirubin 0.2 mg/dL (0.2-1.0); Total Protein 6.5 g/dL (6.4-8.9)
[2018-12-08 15:57] LABS: Urine Appearance Clear; Urine Bilirubin Negative (Negative); Urine Blood Negative (Negative); Urine Color Yellow; Urine Glucose Negative (Negative); Urine Ketones Negative (Negative); Urine Nitrite Negative (Negative); Urine Protein Negative (Negative); Urine Specific Gravity 1.009 (1.010-1.030); Urine Urobilinogen Negative (Negative)
[2018-12-08 17:11] VITALS: BP 121/60
== END 2018-12-08 17:10 | disposition home or self-care (01) ==
LOC: ED 14:20
DX: R55 Syncope and collapse (principal)
CPT/HCPCS: 36415; 80053; 81003; 83690; 85025; 86140; 93005; 99283

== ENCOUNTER 2019-01-02 11:23 | Emergency (ER) | payer OTHER ==
[2019-01-02] MEDS ORDERED: NS 0.9% 1000 ML** 1,000 ML IV ONE (11:42)
--- NOTE | 2019-01-02 12:10 | ED ---
Syncope/Near Syncope - HPI Summary HPI Summary: This patient is a 23 year old F brought in by EMS and is presenting [facility] accompanied by her boyfriend with a chief complaint of syncope earlier today, while at work. Patient reported standing and helping a customer at [facility] , when she became dizzy, slowly fell down, hitting her head once, and then passed out. The episode was witnessed by a coworker. The patient reports head pain from hitting her head, but no other symptoms. She ate this morning before work. The patient is 6 months and has not had a syncopal episode before today. Patient denies any vaginal discharge or vaginal bleeding or abdominal cramping. She has a FHx of diabetes and has been to the [facility] for low blood sugar on 12/08/18. - History Of Current Complaint Chief Complaint: EDSyncope Time Seen by Provider: 01/02/19 11:42 Hx Obtained From: Patient Onset/Duration: Sudden Onset, Resolved Context: Witnessed Activity At Onset: Other - Standing at work Associated Head Trauma: Yes Aggravating Factor(s): Nothing Alleviating Factor(s): Nothing Associated Signs And Symptoms: Dizzy, Other - Head pain, head injury; denies any vaginal discharge or vaginal bleeding or abdominal cramping Related History: Similar Episode/Dx as - 12/08/18 - Allergies/Home Medications Allergies/Adverse Reactions: Allergies Allergy/AdvReac Type Severity Reaction Status Date / Time No Known Allergies Allergy Verified 10/27/18 11:20 PMH/Surg Hx/FS Hx/Imm Hx Previously Healthy: No Endocrine/Hematology History: Denies: Hx Anticoagulant Therapy Cardiovascular History: Denies: Hx Hypertension Respiratory History: Denies: Hx Asthma Sensory History: Denies: Hx Contacts or Glasses, Hx Hearing Aid Opthamlomology History: Denies: Hx Contacts or Glasses Psychiatric History: Reports: Hx of Violent Episodes Against Others Denies: Hx Eating Disorder - Cancer History Hx Chemotherapy: No - Surgical History Surgery Procedure, Year, and Place: none Infectious Disease History: No Infectious Disease History: Denies: Traveled Outside the [place] in Last 30 Days - Family History Known Family History: Positive: Diabetes - Social History Alcohol Use: None Hx Substance Use: No Substance Use Type: Reports: None Substance Use Comment - Amount & Last Used: daily usage Hx Tobacco Use: No Smoking Status (MU): Never Smoked Tobacco Have You Smoked in the Last Year: No Review of Systems Negative: Abdominal Pain Genitourinary: Other - no vaginal bleeding Negative: discharge Positive: Other - Head pain related to trauma during the episode. Positive: Syncope All Other Systems Reviewed And Are Negative: Yes Physical Exam - Summary Physical Exam Summary: VITAL SIGNS: Reviewed. GENERAL: Patient is a well-developed and nourished female who is lying comfortable in the stretcher. Patient is not in any acute respiratory distress. HEAD AND FACE: No signs of trauma. No ecchymosis, hematomas or skull depressions. No sinus tenderness. EYES: PERRLA, EOMI x 2, No injected conjunctiva, no nystagmus. EARS: Hearing grossly intact. Ear canals and tympanic membranes are within normal limits. MOUTH: Oropharynx within normal limits. NECK: Supple, trachea is midline, no adenopathy, no JVD, no carotid bruit, no c- spine tenderness, neck with full ROM. CHEST: Symmetric, no abdominal tenderness. LUNGS: Clear to auscultation bilaterally. No wheezing or crackles. CVS: Regular rate and rhythm, S1 and S2 present, no murmurs or gallops appreciated. ABDOMEN: Soft, non-tender. Normal abdominal distension consistent with gestational age. No rebound no guarding, and no masses palpated. Bowel sounds are normal. EXTREMITIES: FROM in all major joints, no edema, no cyanosis or clubbing. NEURO: Alert and oriented x 3. No acute neurological deficits. Speech is normal and follows commands. SKIN: Dry and warm Triage Information Reviewed: Yes Vital Signs On Initial Exam: Initial Vitals Temp Pulse Resp BP Pulse Ox 98.2 F 76 16 112/64 100 01/02/19 11:30 01/02/19 11:30 01/02/19 11:30 01/02/19 11:30 01/02/19 11:30 Vital Signs Reviewed: Yes Diagnostics - Vital Signs Vital Signs Temp Pulse Resp BP Pulse Ox 01/02/19 11:30 98.2 F 76 16 112/64 100 - Laboratory Result Diagrams: 01/02/19 11:57 01/02/19 11:57 Lab Statement: Any lab studies that have been ordered have been reviewed, and results considered in the medical decision making process. - EKG 11:57 Cardiac Rate: NL - 80 BPM EKG Rhythm: Sinus Rhythm ST Segment: Normal EKG Comparison: No Significant Change - Similar to past EKG in 2014 Summary of EKG Findings: Normal sinus rhythm @ [address] elevation. Similar to past EKG in 2014 Re-Evaluation - Re-Evaluation First Eval Re-Evaluation Time: 14:20 Comment: Patient was informed about discharge plan. Was agreeable. Was told to see her [facility] [facility] [employer] [employer] as fast as possible and to return to the ED with any new or worsening symptoms. Course/Dx Assessment/Plan: This patient is a 23 year old F brought by EMS and is presenting to [facility] accompanied by her boyfriend with a chief complaint of syncope earlier today, 01/02/19 while at work. Patient reported standing and helping a customer at [facility] [employer], when she became dizzy, slowly fell down, hitting her head once, and then passed out. The episode was witnessed by a coworker. The patient reports head pain from hitting her head, but no other symptoms. She ate this morning before work. The patient is 6 months and has not had a syncopal episode before today. She has a FHx of diabetes and has been to the [facility] for low blood sugar on 12/08/18. Blood work without any significant abnormality except for a slightly decreased H&H of 10.1 and 29 which is her usual. Magnesium is 1.7 for which the patient was given magnesium by mouth. Urinalysis is negative. Orthostatics are also normal. At this point I discussed my physical exam and findings with Dr. Ramsey from [facility] and he recommends for the patient to be discharged and follow-up with her OB/ [employer] doctor. The patient is hemodynamically stable alert and oriented 3. Patient doesnt have any vaginal discharge or vaginal bleeding or abdominal cramping therefore we did not perform a pelvic ultrasound or pelvic exam. The heart rate is within normal limits. The patient was instructed to return to the emergency department she develops any abdominal pain, vaginal bleeding, vaginal discharge. The patient understands and agrees. - Diagnoses Differential Diagnosis/HQI/PQRI: Positive: Dysrhythmia, Hyperventilation, Hypovolemia, Vasovagal Episode Provider Diagnoses: Vasovagal episode - Physician Notifications Discussed Care of Patient With: Chele Ramsey Time Discussed With Above Provider: 14:10 Instructed by Provider To: Other - Discussed the patient's case with Dr. Ramsey , OBGYN, who recommended the patient being discharged home and to follow up with her OBGYN. 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 RETURN TO THE ED FOR ANY NEW OR WORSENING SYMPTOMS. - Billing Disposition and Condition Condition: STABLE Disposition: Home - Attestation Statements Document Initiated by Scribe: Yes Documenting Scribe: Aman Decker Provider For Whom Jaquelin is Documenting (Include Credential): Lemuel Delgadillo MD Scribe Attestation: Aman Ferreira, scribed for Lemuel Delgadillo MD on 01/04/19 at 1143. Scribe Documentation Reviewed: Yes Provider Attestation: The documentation as recorded by the jaquelin, Aman Decker accurately reflects the service I personally performed and the decisions made by , Lemuel Delgadillo MD Status of Scribe Document: Viewed
[2019-01-02 12:17] LABS: ABS Eosinophils 0.1 10^3/ul (0-0.6); ABS Lymphocytes 1.3 10^3/ul (1.0-4.8); ABS Monocytes 0.5 10^3/ul (0-0.8); ABS Neutrophils 4.5 10^3/ul (1.5-7.7); Hematocrit 29 % (35-47); Hemoglobin 10.1 g/dL (12.0-16.0); Lymphocyte % 20.8 %; Mean Corpuscular HGB Conc 35 g/dL (31-36); Mean Corpuscular Hemoglobin 31 pg (27-31); Mean Corpuscular Volume 90 fL (80-97); Mean Platelet Volume 8.7 fL (7.4-10.4); Nucleated Red Blood Cells % 0.1; Platelet Count 238 10^3/uL (150-450); Red Blood Count 3.25 10^6 /uL (3.70-4.87); Red Cell Distribution Width 14 % (10.5-15); White Blood Count 6.4 10^3/uL (3.5-10.8)
[2019-01-02 12:31] LABS: ALT 9 U/L (7-52); AST 14 U/L (13-39); Albumin 3.3 g/dL (3.2-5.2); Albumin/Globulin Ratio 1.1 (1-3); Alkaline Phosphatase 45 U/L (34-104); Anion Gap 7 mmol/L (2-11); Blood Urea Nitrogen 7 mg/dL (6-24); CO2 Carbon Dioxide 24 mmol/L (22-32); Calcium 8.6 mg/dL (8.6-10.3); Chloride 106 mmol/L (101-111); Creatine Kinase 50 U/L (10-223); EGFR African American 169.3 (>60); EGFR Non-African American 139.9 (>60); Glucose 97 mg/dL (70-100); Magnesium 1.7 mg/dL (1.9-2.7); Potassium 3.7 mmol/L (3.5-5.0); Sodium 137 mmol/L (135-145); Total Protein 6.3 g/dL (6.4-8.9)
[2019-01-02 12:52] LABS: Alcohol < 10 mg/dL (<10)
[2019-01-02 13:05] LABS: TSH (Thyroid Stimulating Horm) 2.97 mcIU/mL (0.34-5.60)
[2019-01-02] MEDS ORDERED: Magnesium Oxide TAB* 400 MG PO ONE (13:24)
[2019-01-02 13:51] LABS: Urine Appearance Clear; Urine Bilirubin Negative (Negative); Urine Blood Negative (Negative); Urine Color Yellow; Urine Glucose Negative (Negative); Urine Ketones Negative (Negative); Urine Nitrite Negative (Negative); Urine Protein Negative (Negative); Urine Urobilinogen Negative (Negative)
[2019-01-02 14:35] LABS: Urine Benzodiazepine Screen None Detected (None Detect); Urine Opiates Screen None Detected (None Detect)
[2019-01-02 14:40] VITALS: BP 126/83
== END 2019-01-02 14:38 | disposition home or self-care (01) ==
LOC: ED 11:23
DX: O26.892 Other specified pregnancy related conditions, second trimester (principal); R55 Syncope and collapse; Z3A.00 Weeks of gestation of pregnancy not specified
CPT/HCPCS: 36415; 80053; 80307; 80320; 81003; 82550; 83605; 83735; 84443; 84484; 85025; 93005; 96360; 99283; G0480

== ENCOUNTER 2019-06-14 09:20 | Emergency (ER) | payer OTHER ==
[2019-06-14 09:34] VITALS: BP 121/77
--- NOTE | 2019-06-14 09:44 | UC ---
Eye Complaint HPI - HPI Summary HPI Summary: 23-year-old female comes in with a chief complaint of left eyelid swelling and eye redness. Patient's had upper respiratory tract infection symptoms for a week. She's been having runny nose. Last couple of days she's been having drainage out of the left eye and now the lower eyelid is swollen. Patient is breast-feeding. - History of Current Complaint Chief Complaint: UCEye Stated Complaint: LT EYE CONCERN Time Seen by Provider: 06/14/19 09:35 Hx Last Menstrual Period: 05/17/19 Pain Intensity: 5 - Allergies/Home Medications Allergies/Adverse Reactions: Allergies Allergy/AdvReac Type Severity Reaction Status Date / Time No Known Allergies Allergy Verified 06/14/19 09:34 PMH/Surg Hx/FS Hx/Imm Hx Previously Healthy: Yes Other History Of: Negative For: Anticoagulant Therapy - Surgical History Surgical History: Yes Surgery Procedure, Year, and Place: Right arm surgery - Family History Known Family History: Positive: Unknown - Pt is adopted, no knowledge of blood relatives, Diabetes - Social History Alcohol Use: None Substance Use Type: Marijuana Substance Use Comment - Amount & Last Used: positive THC throughout , pt denies use Smoking Status (MU): Never Smoked Tobacco Have You Smoked in the Last Year: No Household Exposure Type: Cigarettes - Immunization History Most Recent Influenza Vaccination: unsure Most Recent Pneumonia Vaccination: never Review of Systems All Other Systems Reviewed And Are Negative: Yes Constitutional: Positive: Other - SEE HPI Skin: Positive: Other - SEE HPI Eyes: Positive: Drainage - LT, Eye Redness - LT, Other - SEE HPI ENT: Positive: Nasal Discharge, Sinus Congestion Respiratory: Positive: Negative Cardiovascular: Positive: Negative Gastrointestinal: Positive: Negative Motor: Positive: Negative Neurovascular: Positive: Negative Musculoskeletal: Positive: Negative Neurological: Positive: Negative Psychological: Positive: Negative Is Patient Immunocompromised?: No Physical Exam Triage Information Reviewed: Yes Appearance: No Pain Distress, Well-Nourished, Ill-Appearing - MILD Vital Signs: Initial Vital Signs Temp 98.4 F 06/14/19 09:30 Pulse 95 06/14/19 09:30 Resp 18 06/14/19 09:30 BP 121/77 06/14/19 09:30 Pulse Ox 98 06/14/19 09:30 Vital Signs Reviewed: Yes Eyes: Positive: Conjunctiva Inflamed - LEFT, Discharge - LEFT, Other: - PERRLA EOMI. Left lower eyelid is swollen and erythematous. ENT: Positive: Pharyngeal erythema, Nasal congestion, Nasal drainage, TMs normal Neck: Positive: Supple Respiratory: Positive: Lungs clear, Normal breath sounds, No respiratory distress Cardiovascular: Positive: RRR Musculoskeletal: Positive: Strength Intact, ROM Intact Neurological: Positive: Alert, Muscle Tone Normal Psychological: Positive: Normal Response To Family, Age Appropriate Behavior Skin: Positive: Other - There is some erythema on the left lower eyelid Eye Complaint Course/Dx - Course Course Of Treatment: I discussed treatment of stye with warm moist compresses. Also will use antibiotic eyedrops and oral antibiotics to 2 extension of erythema in the lower eyelid. It's not obviously of preorbital cellulitis at this time. Follow -up if not improving or worse. - Differential Dx/Diagnosis Provider Diagnosis: Hordeolum externum left lower eyelid, Upper respiratory infection Discharge ED - Sign-Out/Discharge Documenting (check all that apply): Patient Departure All imaging exams completed and their final reports reviewed: No Studies - Discharge Plan Condition: Stable Disposition: HOME Prescriptions: Amoxicillin PO (*) [Amoxicillin 875 MG (*)] 875 mg PO BID #20 tab Tobramycin 0.3% OPHTH.MAGALIS* 1 drop LEFT EYE Q4H #1 btl Patient Education Materials: Stye (ED), Upper Respiratory Infection (ED) Referrals: [facility] [Outside] Additional Instructions: FOLLOW UP WITH YOUR DOCTOR IF NOT COMPLETELY IMPROVED. GET REEVALUATED SOONER IF NOT IMPROVING OR YOUR CONDITION WORSENS OR ANY QUESTIONS OR CONCERNS. - Billing Disposition and Condition Condition: STABLE Disposition: Home
== END 2019-06-14 09:49 | disposition home or self-care (01) ==
LOC: UCCORT 09:20
DX: H00.015 Hordeolum externum left lower eyelid (principal); J06.9 Acute upper respiratory infection, unspecified
CPT/HCPCS: 99212; G0463